=== PATIENT | male | born 1945 | race Caucasian/White ===

== ENCOUNTER 2024-05-25 08:33 | Emergency (ER) | payer OTHER ==
[2024-05-25] MEDS ORDERED: SMZ./TMP. 800/160 MG TABLET ONE (11:54)
[2024-05-25] MEDS ORDERED: DOXYCYCLINE 100 MG CAP PO ONE (11:54)
--- NOTE | 2024-05-25 11:56 | ER ---
Nurse's Notes [facility] Name: Christian Gomez Age: 78 yrs Sex: Male : 1945 Arrival Date: 05/25/2024 Time: 08:33 Bed 19 Private MD: Diagnosis: Puncture wound without foreign body of right hand, initial encounter-right index;Cellulitis of right finger-index Presentation: 05/25 08:49 Chief complaint: Patient states: Wound to R hand 2nd digit is red, swollen for 2 days. ll1 Coronavirus screen: Client denies travel out of the [place] in the last 14 days. At this time, the client does not indicate any symptoms associated with coronavirus-19. Ebola Screen: Patient denies travel to an Ebola-affected area in the 21 days before illness onset. Initial Sepsis Screen: Does the patient meet any 2 criteria? No. Patient's initial sepsis screen is negative. Does the patient have a suspected source of infection? No. Patient's initial sepsis screen is negative. Risk Assessment: Do you want to hurt yourself or someone else? Patient reports no desire to harm self or others. Onset of symptoms was May 24, 2024. 08:49 Method Of Arrival: Ambulatory ll1 08:49 Acuity: JOSE 3 ll1 Historical: - Allergies: 08:49 No Known Allergies; ll1 - PMHx: 08:49 "sinus surgery"; ll1 - PSHx: 08:49 back and leg surgery; ll1 - Immunization history:: Adult Immunizations up to date. - Infectious Disease History:: Denies. - Social history:: Smoking status: Patient denies any tobacco usage or history of. - Family history:: not pertinent. Screenin:40 [facility] ED Fall Risk Assessment (Adult) History of falling in the last 3 months, kj2 including since admission No falls in past 3 months (0 pts) Confusion or Disorientation No (0 pts) Intoxicated or Sedated No (0 pts) Impaired Gait No (0 pts) Mobility Assist Device Used No (0 pt) Altered Elimination No (0 pt) Score/Fall Risk Level 0 - 2 = Low Risk. Abuse screen: Denies threats or abuse. Denies injuries from another. Nutritional screening: No deficits noted. Tuberculosis screening: No symptoms or risk factors identified. Assessment: 09:37 General: Appears in no apparent distress. Behavior is calm, cooperative, Reports. Pain: kj2 Complains of pain in right index finger. Neuro: Level of Consciousness is awake, alert, obeys commands, Oriented to person, place, time. Cardiovascular: Reports None. Respiratory: Airway is patent Respiratory effort is even, unlabored, Respiratory pattern is regular. : No deficits noted. 10:47 Reassessment: No changes from previously documented assessment. Patient and/or family kj2 updated on plan of care and expected duration. Pain level reassessed. Patient is alert, oriented x 3, equal unlabored respirations, skin warm/dry/pink. 11:50 Reassessment: Patient appears in no apparent distress at this time. Patient and/or kj2 family updated on plan of care and expected duration. Pain level reassessed. Patient is alert, oriented x 3, equal unlabored respirations, skin warm/dry/pink. 12:01 Reassessment: No changes from previously documented assessment. Patient is alert, kj2 oriented x 3, equal unlabored respirations, skin warm/dry/pink. Patient denies pain at this time. Vital Signs: 08:49 BP 142 / 79; Pulse 82; Resp 16; Temp 97.9; Pulse Ox 95% on R/A; Weight 83.91 kg; Height ll1 5 ft. 8 in. ; Pain 5/10; 09:39 BP 140 / 85; Pulse 75; Resp 20; Temp 98(O); Pulse Ox 95% on R/A; kj2 10:46 BP 132 / 79; Pulse 71; Resp 18; Pulse Ox 97% on R/A; kj2 11:49 BP 144 / 83; Pulse 73; Resp 18; Pulse Ox 97% on R/A; kj2 11:58 BP 152 / 83; Pulse 74; Resp 20; Temp 98(O); Pulse Ox 95% on R/A; kj2 08:49 Body Mass Index 28.13 (83.91 kg, 172.72 cm) ll1 08:49 Pain Scale: Adult ll1 ED Course: 08:39 Patient arrived in ED. mg5 08:45 Lalit Tam MD is Attending Physician. jn 08:49 Arm band placed on. ll1 08:51 Triage completed. ll1 09:18 Patient placed in an exam room, on a stretcher. ll1 09:36 Yesenia Mabry, RN is Primary Nurse. kj2 09:41 Patient has correct armband on for positive identification. Bed in low position. kj2 Provided Education on: call light, fall precautions. 11:59 Hand Right 3 View XRAY In Process Unspecified. EDMS 12:03 No provider procedures requiring assistance completed. Patient did not have IV access kj2 during this emergency room visit. Administered Medications: 11:58 Drug: Doxycycline PO 200 mg PO once Route: PO; kj2 12:00 Follow up: Response: No adverse reaction kj2 11:58 Drug: Trimethoprim-Sulfamethoxazole PO (160 mg-800 mg (DS) 1 tablet PO once Route: PO; kj2 12:00 Follow up: Response: No adverse reaction kj2 Medication: 09:41 VIS not applicable for this client. kj2 Outcome: 11:55 Discharge ordered by . jn 12:02 Discharged to home ambulatory, kj2 12:02 Condition: stable 12:02 Discharge instructions given to patient, Instructed on discharge instructions, follow up and referral plans. Demonstrated understanding of instructions, follow-up care, medications, Prescriptions given X 3, 12:04 Patient left the ED. kj2 Signatures: Dispatcher [employer] EDMS Lalit Tam MD MD cha Lewis, Lynsay, RN RN ll1 Lali Millard mg5 Yesenia Mabry, RN RN kj2
--- NOTE | 2024-05-25 11:56 | EDPHYS ---
Physician Documentation [facility] Name: Christian Gomez Age: 78 yrs Sex: Male : 1945 Arrival Date: 05/25/2024 Time: 08:33 Bed 19 Private MD: ED Physician Lalit Tam HPI: 05/25 11:48 This 78 yrs old Male presents to ER via Ambulatory with complaints of Wound jn Infection. 11:48 The patient or guardian reports a contusion, decreased range of motion, pain. The jn complaints affect the left hand diffusely. Context: The problem was sustained outdoors. Onset: The symptoms/episode began/occurred 2 day(s) ago. Modifying factors: The symptoms are alleviated by holding still, the symptoms are aggravated by movement, dependent position. Associated signs and symptoms: The patient has no apparent associated signs or symptoms. Severity of symptoms: At their worst the symptoms were mild, in the emergency department the symptoms are unchanged. The patient has not experienced similar symptoms in the past. Historical: - Allergies: 08:49 No Known Allergies; ll1 - PMHx: 08:49 "sinus surgery"; ll1 - PSHx: 08:49 back and leg surgery; ll1 - Immunization history:: Adult Immunizations up to date. - Infectious Disease History:: Denies. - Social history:: Smoking status: Patient denies any tobacco usage or history of. - Family history:: not pertinent. ROS: 11:48 Constitutional: Negative for fever, chills, and weight loss, Eyes: Negative for injury, jn pain, redness, and discharge, ENT: Negative for injury, pain, and discharge, Neck: Negative for injury, pain, and swelling, Cardiovascular: Negative for chest pain, palpitations, and edema, Respiratory: Negative for shortness of breath, cough, wheezing, and pleuritic chest pain, Abdomen/GI: Negative for abdominal pain, nausea, vomiting, diarrhea, and constipation, Back: Negative for injury and pain, : Negative for injury, bleeding, discharge, and swelling, Neuro: Negative for headache, weakness, numbness, tingling, and seizure, Psych: Negative for depression, anxiety, suicide ideation, homicidal ideation, and hallucinations, Allergy/Immunology: Negative for hives, rash, and allergies, Endocrine: Negative for neck swelling, polydipsia, polyuria, polyphagia, and marked weight changes, 11:48 MS/extremity: Positive for pain, swelling, tenderness, of the dorsal aspect of middle phalanx of right index finger, dorsal aspect of proximal phalanx of right index finger, palmar aspect of middle phalanx of right index finger and palmar aspect of proxima; phalanx of right index finger, Exam: 11:48 Constitutional: This is a well developed, well nourished patient who is awake, alert, jn and in no acute distress. Head/Face: Normocephalic, atraumatic. Eyes: Pupils equal round and reactive to light, extra-ocular motions intact. Lids and lashes normal. Conjunctiva and sclera are non-icteric and not injected. Cornea within normal limits. Periorbital areas with no swelling, redness, or edema. ENT: Nares patent. No nasal discharge, no septal abnormalities noted. Tympanic membranes are normal and external auditory canals are clear. Oropharynx with no redness, swelling, or masses, exudates, or evidence of obstruction, uvula midline. Mucous membranes moist. Neck: Trachea midline, no thyromegaly or masses palpated, and no cervical lymphadenopathy. Supple, full range of motion without nuchal rigidity, or vertebral point tenderness. No Meningismus. Chest/axilla: Normal chest wall appearance and motion. Nontender with no deformity. No lesions are appreciated. Cardiovascular: Regular rate and rhythm with a normal S1 and S2. No gallops, murmurs, or rubs. Normal PMI, no JVD. No pulse deficits. Respiratory: Lungs have equal breath sounds bilaterally, clear to auscultation and percussion. No rales, rhonchi or wheezes noted. No increased work of breathing, no retractions or nasal flaring. Abdomen/GI: Soft, non-tender, with normal bowel sounds. No distension or tympany. No guarding or rebound. No evidence of tenderness throughout. Back: No spinal tenderness. No costovertebral tenderness. Full range of motion. Skin: Warm, dry with normal turgor. Normal color with no rashes, no lesions, and no evidence of cellulitis. Neuro: Awake and alert, GCS 15, oriented to person, place, time, and situation. Cranial nerves II-XII grossly intact. Motor strength 5/5 in all extremities. Sensory grossly intact. Cerebellar exam normal. Normal gait. Psych: Awake, alert, with orientation to person, place and time. Behavior, mood, and affect are within normal limits. 11:48 Musculoskeletal/extremity: Extremities: noted in the dorsal aspect of middle phalanx of right index finger, dorsal aspect of proximal phalanx of right index finger, palmar aspect of middle phalanx of right index finger and palmar aspect of proxima; phalanx of right index finger: decreased ROM, erythema, pain, swelling, tenderness, ROM: intact in all extremities, Circulation is intact in all extremities. Sensation intact. Compartment Syndrome exam of affected extremity: is normal. Vital Signs: 08:49 BP 142 / 79; Pulse 82; Resp 16; Temp 97.9; Pulse Ox 95% on R/A; Weight 83.91 kg; Height ll1 5 ft. 8 in. ; Pain 5/10; 09:39 BP 140 / 85; Pulse 75; Resp 20; Temp 98(O); Pulse Ox 95% on R/A; kj2 10:46 BP 132 / 79; Pulse 71; Resp 18; Pulse Ox 97% on R/A; kj2 11:49 BP 144 / 83; Pulse 73; Resp 18; Pulse Ox 97% on R/A; kj2 11:58 BP 152 / 83; Pulse 74; Resp 20; Temp 98(O); Pulse Ox 95% on R/A; kj2 08:49 Body Mass Index 28.13 (83.91 kg, 172.72 cm) ll1 08:49 Pain Scale: Adult ll1 MDM: 08:45 Patient medically screened. [facility] 11:52 Differential diagnosis: contusion, abrasion, tendonitis. Data reviewed: vital signs, [facility] nurses notes, radiologic studies, plain films. Consideration of Admission/Observation Escalation of care including admission/observation considered. I considered the following discharge prescriptions or medication management in the emergency department Medications were administered in the Emergency Department. See MAR. Test considered but Not performed: Labs: no labs. Other Details pt did not want to open. Historians other than the Patient: pt well informed. Care significantly affected by the following chronic conditions: none. 05/25 11:47 Order name: Hand Right 3 View XRAY [facility] Administered Medications: 11:58 Drug: Doxycycline PO 200 mg PO once Route: PO; kj2 12:00 Follow up: Response: No adverse reaction kj2 11:58 Drug: Trimethoprim-Sulfamethoxazole PO (160 mg-800 mg (DS) 1 tablet PO once Route: PO; kj2 12:00 Follow up: Response: No adverse reaction kj2 Disposition Summary: 05/25/24 11:55 Discharge Ordered Notes: Location: Home [facility] Problem: new jn Symptoms: have improved jn Condition: Stable jn Diagnosis - Puncture wound without foreign body of right hand, initial encounter - right index jn - Cellulitis of right finger - index jn Followup: jn - With: Private Physician - When: 2 - 3 days - Reason: Recheck today's complaints, Continuance of care, Re-evaluation by your physician Discharge Instructions: - Discharge Summary Sheet jn - Cellulitis, Adult, [id number] jn - Puncture Wound, [id number] [facility] Forms: - Medication Reconciliation Form [facility] - Antibiotic Education jn - Prescription Opioid Use jn - Patient Portal Instructions [facility] - Leadership Thank You Letter [facility] Prescriptions: - Doxycycline Hyclate 100 mg Oral tablet - take 1 tablet ORAL route every 12 hours; 20 tablet; Refills: 0, Product [facility] Selection Permitted - Motrin IB 200 mg Oral tablet - take 3 tablet ORAL route every 6 hours As needed as needed with food; 30 jn tablet; Refills: 0, Product Selection Permitted - Bactrim DS 800-160 mg Oral Tablet - take 1 tablet ORAL route every 12 hours for 10 days; 20 tablet; Refills: 0, jn Product Selection Permitted Signatures: Dispatcher [employer] Lalit John MD MD cha Lewis, Lynsay RN RN ll1 Yesenia Mabry RN RN kj2 Corrections: (The following items were deleted from the chart) 11:48 11:48 Hand Right 3 View+[id number].[email or web address] ordered. EDMS EDMS
[2024-05-25 12:14] VITALS: TEMP 98; O2SAT 95
--- NOTE | 2024-05-25 12:15 | RAD REPORT ---
EXAM DESCRIPTION: RAD - Hand Right 3 View - 05/25/2024 11:58 am CLINICAL HISTORY: Right hand pain and swelling FINDINGS: No fracture or dislocation is seen. Soft tissue swelling. No bony destructive lesion is seen. [id number] osteoarthritis first carpometacarpal joint
[2024-05-25 12:32] VITALS: BP 152/83
== END 2024-05-25 12:04 | disposition home or self-care (01) ==
LOC: SUPCPDRO 08:33 → ER 08:33
DX: S61.230A Puncture wound without foreign body of right index finger without damage to nail, initial encounter (principal); L03.011 Cellulitis of right finger
CPT/HCPCS: 99283

== ENCOUNTER 2024-09-28 07:45 | Day surgery (SDC) | payer OTHER ==
[2024-09-28 08:15] LABS: Absolute Basophils 0.1 K/uL (0-0.5); Absolute Eosinophils 0.7 K/uL (0-0.5); Absolute Lymphocytes (CBC) 1.7 K/uL (0.7-4.9); Absolute Monocytes 0.6 K/uL (0.1-1.3); Absolute Neutrophil 3.6 K/uL (1.8-8.0); Basophils % 0.8 % (0-1.3); Eosinophils % 10.9 % (0-4.4); Hematocrit 42.2 % (39.6-49.0); Hemoglobin 14.3 g/dL (13.6-17.9); Lymphocytes % 25.8 % (15.3-44.8); MCH 30.6 pg (27.0-35.0); MCV 89.9 fL (80-100); MPV 8.2 fL (7.6-11.3); Neutrophils % 53.5 % (41.7-73.7); Nucleated Red Blood Cells % 0.6 % (0-0); Platelets 293 thou/uL (152-406); RBC Red Blood Cell Count 4.69 M/uL (4.33-5.43); Red Cell Distribution Width 14.9 % (12.1-15.2)
[2024-09-28 08:31] LABS: Anion Gap 8.2 mEq/L (5.0-15.0); Potassium 4.2 mEq/L (3.5-5.1)
--- NOTE | 2024-09-28 08:32 | RAD REPORT ---
Procedure: Chest Pa And Lat (2 Views) HISTORY: Preop COMPARISON: none FINDINGS: The lungs appear clear of acute infiltrate. No significant pleural effusion noted. The heart is borderline enlarged. IMPRESSION: No acute abnormality is displayed.
[2024-09-28] MEDS: Ringers Lactate 1,000 ML IV ONE (08:45)
[2024-09-28] MEDS ORDERED: ONDANSETRON 4 MG/2 ML VIAL ONE (10:21)
[2024-09-28] MEDS ORDERED: ROCURONIUM 50 MG/5 ML VIAL IV ONE (10:21)
[2024-09-28] MEDS ORDERED: propofoL 200 MG/20 ML VIAL IV ONE (10:21)
[2024-09-28] MEDS ORDERED: LIDOCAINE 2% MPF 5 ML VIAL ONE (10:21)
[2024-09-28] MEDS ORDERED: FENTANYL CITR 100 MCG/2 ML ONE (10:21)
[2024-09-28] MEDS ORDERED: SUGAMMADEX SODIUM 200 MG/2 ML VIAL IV ONE (10:59)
[2024-09-28] MEDS: CEFAZOLIN SODIUM 1 GM/VIAL ONE (11:12)
[2024-09-28] MEDS ORDERED: dexAMETHasone 10 MG/ML VIAL ONE (11:18)
[2024-09-28] MEDS ORDERED: EPHEDRINE SULF 50 MG/ML VIAL ONE (11:28)
--- NOTE | 2024-09-28 12:13 | P.BOP ---
Preoperative diagnosis: bilateral incarcerated inguinal hernias Postoperative diagnosis: same Primary procedure: Laparoscopic repair of bilateral inguinal hernias with mesh Estimated blood loss: <10cc Specimen: none Findings: bilateral inguinal hernias Anesthesia: General Complications: None Transferred to: Recovery Room Condition: Good
[2024-09-28] MEDS: HYDROMORPHONE HCL 1 MG/ML INJ ONE (12:37)
[2024-09-28 12:38] VITALS: O2SAT 96
[2024-09-28 13:59] VITALS: BP 127/66; TEMP 97
== END 2024-09-28 13:35 | disposition home or self-care (01) ==
LOC: OR 07:45
PROVIDERS: ATTEND Surgery
PROC: 0YUA4JZ Supplement Bilateral Inguinal Region with Synthetic Substitute, Percutaneous Endoscopic Approach (ICD-10-PCS; principal; 2024-09-28 10:00)
DX: K40.00 Bilateral inguinal hernia, with obstruction, without gangrene, not specified as recurrent (principal); J45.909 Unspecified asthma, uncomplicated
CPT/HCPCS: 93005; 85025; 80048; 36415; 71046; 49650; J2704; J2003; J3010; J1100; J1171; J2405; J7120; J0690